=== PATIENT | male | born 1955 | race African-American/Black ===

== ENCOUNTER 2018-07-26 09:55 | Emergency (ER) | payer SELFPAY ==
[2018-07-26] MEDS ORDERED: Ondansetron PF 4 MG/2 ML Vial ONE (10:08)
[2018-07-26] MEDS ORDERED: Pantoprazole 40 MG VIAL ONE (10:08)
[2018-07-26] MEDS ORDERED: Ketorolac Tromethamine 30 MG/ML VIAL ONE (10:08)
[2018-07-26 10:36] LABS: #Basophils 0.1 thou/uL (0.0-0.2); #Eosinphils 0.1 thou/uL (0.0-0.7); #Lymphocytes 1.9 thou/uL (1.20-3.40); #Monocytes 0.4 thou/uL (0.11-0.59); #Neutrophils 3.2 thou/uL (1.40-6.50); %Basophils 1.1 % (0.0-1.0); %Eosinophils 1.4 % (0.0-10.0); %Lymphocytes 34.4 % (21.0-51.0); %Monocytes 6.2 % (0.0-10.0); %Neutrophils 56.8 % (42.0-75.0); Mean Corpuscular HGB CONC 32.1 g/dL (32.0-36.0); Mean Corpuscular Hemoglobin 31.1 pg (27.0-31.0); Mean Platelet Volume 8.9 fL (7.4-10.4); Platelet Count 176 thou/uL (130-400); RBC Distribution Width 12.1 % (11.5-14.5); Red Blood Cell (RBC) Count 4.82 mill/uL (4.70-6.10); White Blood Cell (WBC) Count 5.6 thou/uL (4.8-10.8)
[2018-07-26 11:00] LABS: ALT (SGPT) 11 U/L (8-55); AST (SGOT) 20 U/L (5-34); Alkaline Phosphatase 78 U/L (40-150); Anion Gap 17 mmol/L (10-20); BUN (Urea Nitrogen) 10 mg/dL (8.4-25.7); Bilirubin, Total 0.4 mg/dL (0.2-1.2); Calc. Creatinine Clearance 0 mL/min (70-130); Calcium 9.3 mg/dL (7.8-10.44); Carbon Dioxide 21 mmol/L (23-31); Chloride 106 mmol/L (98-107); Estimated GFR-MDRD Greater than 90; Globulin 3.8 g/dL (2.4-3.5); Glucose 111 mg/dL (80-115); Potassium 4.7 mmol/L (3.5-5.1); Protein, Total 7.8 g/dL (5.8-8.1); Sodium 139 mmol/L (136-145)
--- NOTE | 2018-07-26 11:53 | RAD ---
PORTABLE CHEST: Date: 07/26/18 HISTORY: Generalized weakness, vomiting. COMPARISON: 07/15/15 study. FINDINGS: Heart size within normal limits. Aorta is mildly tortuous. The lungs are clear of any infiltrative pr ocess. IMPRESSION: No acute changes. POS: TPC
[2018-07-26] MEDS ORDERED: hydrALAZINE 20 MG/ML VIAL ONE (12:59)
== END 2018-07-26 13:26 | disposition home or self-care (01) ==
LOC: ERS 09:55
DX: R53.1 Weakness (principal); I25.10 Atherosclerotic heart disease of native coronary artery without angina pectoris; J42 Unspecified chronic bronchitis; F17.210 Nicotine dependence, cigarettes, uncomplicated
CPT/HCPCS: 36415; 71045; 80053; 84484; 85025; 87081; 87430; 87804; 93005; 96361; 96374; 96375; C9113; J0360; J1885; J2405

== ENCOUNTER 2019-03-17 10:41 | Inpatient (IN) | payer SELFPAY ==
[2019-03-17 11:05] LABS: Prothrombin Time 13.4 SEC (12.0-14.7)
[2019-03-17 11:06] LABS: PTT 29.5 SEC (22.9-36.1)
[2019-03-17 11:09] LABS: Hemoglobin 14.9 g/dL (14.0-18.0); Mean Corpuscular HGB CONC 33.2 g/dL (32.0-36.0); Mean Corpuscular Hemoglobin 31.6 pg (27.0-31.0); Mean Corpuscular Volume 95.4 fL (78.0-98.0); Mean Platelet Volume 8.5 fL (7.4-10.4); Platelet Count 202 thou/uL (130-400); RBC Distribution Width 12.6 % (11.5-14.5); Red Blood Cell (RBC) Count 4.72 mill/uL (4.70-6.10)
[2019-03-17 11:10] LABS: White Blood Cell (WBC) Count 5.6 thou/uL (4.8-10.8)
[2019-03-17 11:27] LABS: Band 3 % (5-11); Eosinophils 4 % (0-10); Lymphocytes 16 % (21-51); MDiff Complete? YES; Monocytes 18 % (0-10); Neutrophil 34 % (42-75); Platelet Morphology Comment Appears Adequate; Polychromasia SLIGHT = 2-3 cells (100X) (0-2/hpf); Reactive Lymphocytes 25 % (0-10); Target Cells SLIGHT = 2-5 cells (100X) (0-1/hpf); Tear Drops SLIGHT = 2-5 cells (100X) (0-1/hpf)
--- NOTE | 2019-03-17 11:34 | CT ---
CT BRAIN WITHOUT CONTRAST: HISTORY: Level II stroke, right-sided weakness, and slurred speech. COMPARISON: Comparison is made to the previous day's exam. FINDINGS: Changes of old infarction in the right cerebellar hemisphere and chronic small-vessel ischemic diseas e are again seen. The ventricular size is stable and the basilar cisterns patent. No evidence of ac unga infarct, hemorrhage, midline shift, or abnormal extraaxial fluid collections is noted. The bony calvarium is intact. 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 IMPRESSION: No CT evidence of acute intracranial process. Discussed over the telephone with ER physician, Dr. Andrew Hamlin, at 11:03 a.m. AUSTYN COREA POS: FLORENTIN
[2019-03-17 11:36] LABS: ALT (SGPT) 10 U/L (8-55); AST (SGOT) 22 U/L (5-34); Albumin 4.1 g/dL (3.4-4.8); Alkaline Phosphatase 81 U/L (40-150); Anion Gap 13 mmol/L (10-20); BUN (Urea Nitrogen) 11 mg/dL (8.4-25.7); Bilirubin, Total 0.9 mg/dL (0.2-1.2); CK (CPK) 66 U/L (30-200); Calc. Creatinine Clearance 0 mL/min (70-130); Calcium 9.8 mg/dL (7.8-10.44); Carbon Dioxide 23 mmol/L (23-31); Chloride 105 mmol/L (98-107); Estimated GFR-MDRD 90; Globulin 3.4 g/dL (2.4-3.5); Glucose 101 mg/dL (80-115); Potassium 4.2 mmol/L (3.5-5.1); Protein, Total 7.5 g/dL (5.8-8.1); Sodium 137 mmol/L (136-145)
[2019-03-17] MEDS ORDERED: Aspirin 300 MG Suppository ONE (13:30)
[2019-03-17] MEDS ORDERED: Aspirin Chewable 81 MG TAB ONE (13:38)
[2019-03-17] MEDS ORDERED: Ondansetron ODT 4 MG TAB SL PRN (14:49)
[2019-03-17] MEDS ORDERED: Ondansetron PF 4 MG/2 ML Vial IVP PRN (14:49)
[2019-03-17] MEDS ORDERED: Acetaminophen 325 MG TAB PO PRN (14:49)
[2019-03-17 14:52] LABS: Bilirubin Negative (Negative); Blood, Urine Negative (Negative); Clarity Clear (Clear); Glucose, Urine (Dipstick) Normal (Negative); Leukocyte Negative Leu/uL (Negative); Nitrite Negative (Negative); Protein, Urine (Dipstick) Negative (Neg-Trace); Urobilinogen Normal mg/dL (Less than 2)
--- NOTE | 2019-03-17 15:34 | RAD ---
CHEST 1 VIEW PORTABLE: Date: 03/17/19 HISTORY: Elevated white blood cell count. COMPARISON: 07/26/18. FINDINGS: Monitor leads overlie the chest. Heart size is normal. The lungs are clear. IMPRESSION: No acute intrathoracic disease. Atherosclerosis of aorta. Stable from prior study. POS: OFF
[2019-03-17] MEDS ORDERED: Lorazepam 2 MG/ML VIAL SLOW IVP PRN (16:22)
[2019-03-17 16:48] VITALS: BMI 18.7
[2019-03-17 17:22] LABS: Troponin I 0.012 ng/mL (< 0.028)
--- NOTE | 2019-03-17 18:05 | MRI ---
MRI Brain WO Con History: Right-sided weakness and slurred speech Comparison: CT brain same day Findings: On the diffusion weighted imaging sequence there is diffusion restriction in the left MCA t erritory which is scattered and punctate. This involves the deep white matter and cortex of both the left temporal lobe and parietal lobe area and encephalomalacia inferior right cerebellum, large v olume. No midline shift. No mass effect. There are punctate foci of susceptibility of the left occipital lob e and right parietal lobe indicate chronic microhemorrhages as well as the deep left parietal white matter. Extensive chronic microangiopathic changes. Globes are intact. Mild mucosal sinus thickening of both maxillary sinuses. Impression: Multifocal small peripheral cortical infarcts of the left MCA distribution as well as lef t MCA deep white matter.
[2019-03-17] MEDS: Atorvastatin Calcium 40 MG TAB PO SCH (20:46)
--- NOTE | 2019-03-17 22:30 | HP ---
CHIEF COMPLAINT: Worsening weakness to his left upper extremity, left lower extremity, and slurred speech. HISTORY OF PRESENT ILLNESS: The patient is a 63-year-old male with history of CAD. He does have stents x2. He has a history of stroke in the past, currently not on any medication, came into the hospital actually yesterday in the EMS with symptoms of stroke-like symptoms. He initially underwent a workup with CT head and also a CTA and a stroke level 1 was activated. An old CVA was found on the CT brain. The patient initially was asked to be admitted to the hospital, however, he left against medical advice. He came back in again today because the family insisted that he continues to have weakness and slurred speech. He underwent a CTA on the , which indicated bilateral calcification of the terminal carotid arteries, right greater than left, moderate focal calcified plaques on the distal right vertebral artery. Incidental note of prominent mediastinal lymph node was also noted. On his right carotid artery, he had a moderate plaque, however, the degree of stenosis was difficult given the tortuosity of the intracranial course. The patient also had a CT head today, which indicated just old infarct in the right cerebellum and chronic small-vessel disease, otherwise nothing acute was noted. PAST MEDICAL HISTORY: The patient has a history of 1. CAD. 2. He has a history of prior strokes. 3. He has a history of chronic bronchitis, pulmonary disease, a smoker. He apparently has a history of seizures, but is not on any medications. PAST SURGICAL HISTORY: He has had no surgeries in the past. SOCIAL HISTORY: He drinks 5 drinks per day. Smokes a pack of cigarettes a day. Any other recreational drug use, he says that he has had a usage of cocaine, however, unclear if he did it recently. He is a full code. Lives alone. ALLERGIES: NO KNOWN DRUG ALLERGIES. MEDICATIONS: He takes none. REVIEW OF SYSTEMS: All negative except for the ones mentioned above in the HPI. PHYSICAL EXAMINATION: VITAL SIGNS: Temperature of 98.8, pulse 96, respirations 18, blood pressure 176/98. GENERAL: He is awake, alert, and oriented x3. Does not appear in any distress. HEENT: Normocephalic, atraumatic. No lymphadenopathy noted. Pupils are equal and reactive to light. CV: S1 and S2 present. No murmurs, rubs, or gallops. LUNGS: Clear to auscultation. No rhonchi or wheezes noted. ABDOMEN: Soft and nontender. Bowel sounds are present x2. EXTREMITIES: No edema. Pedal pulses are present x2. NEURO: He does have significant dysarthria. He has significant weakness to his right upper extremity and right lower extremity. SKIN: No cuts, lesions, or bruises noted. DIAGNOSTIC DATA: EKG indicated sinus bradycardia. LABORATORY RESULTS: WBCs of 5.4, hemoglobin of 14.9, hematocrit of 45.0. He does have 3 bands. Chemistry; sodium of 137, potassium of 4.2, chloride of 105, BUN of 11, creatinine of 1.01. Troponin x2 were negative. ASSESSMENT AND PLAN: The patient is a 63-year-old male who presents to the hospital with weakness. 1. Most likely a stroke. The patient does have right-sided weakness. He has had a right cerebellar infarct in the past based on the CT scan. The patient told me that he does have weakness on his right side to begin with. The patient does not take any aspirin or statin at home. We will start him on aspirin. We will start him on a statin. We will get an echocardiogram. We will get an MRI brain and continue to monitor. Neurology has been consulted. 2. Sinus bradycardia. He does have a history of coronary artery disease. He has 2 stents. He has not been on any medications. His troponins are negative. The patient denies any chest pain or shortness of breath. I will wait for the echocardiogram to come back. 3. Normal WBC with mild elevated bands. We will get a chest x-ray and a urine to make sure there is no other infectious etiology. 4. Coronary artery disease. We will continue with aspirin and the statin. We will also check a lipid level in the morning. 5. Alcohol use and smoking history. I have talked to him in detail about smoking cessation. He understands he does not want a patch. I will put him on 's protocol and do Ativan p.r.n. Job ID: [id number]
[2019-03-18 05:59] LABS: Cardiac Risk 3.1 (Less than 4.5)
[2019-03-18] MEDS: Enoxaparin Sodium 40 MG/0.4 ML SYRINGE SC SCH (08:17)
[2019-03-18] MEDS ORDERED: Aspirin 81 mg Enteric Coated Tablet PO SCH (09:00)
--- NOTE | 2019-03-18 11:37 | PDOC.HOSPP ---
- Subjective Encounter Date: 03/18/19 Encounter Time: 11:35 Subjective: Mr. Graham was seen today in follow-up of acute CVA. He does not have any complaints. He continues with right sided weakness. - Objective Vital Signs & Weight: Vital Signs (12 hours) Temp Pulse Pulse Pulse Resp BP BP 03/18/19 09:50 52 L 52 L 152/89 H 03/18/19 08:55 57 L 51 L 187/88 H 03/18/19 08:00 98.2 F 47 L 16 03/18/19 07:35 197/87 H 03/18/19 04:00 98.2 F 53 L 18 03/18/19 03:00 144/77 H 03/17/19 23:56 175/88 H 03/17/19 23:53 97.7 F 47 L 15 BP BP Pulse Ox 03/18/19 09:50 162/79 H 03/18/19 08:55 187/82 H 03/18/19 08:00 197/87 H 99 03/18/19 07:35 03/18/19 04:00 144/77 H 95 03/18/19 03:00 03/17/19 23:56 181/81 H 03/17/19 23:53 175/88 H 98 Weight Weight 142 lb 1.6 oz I&O: 03/17/19 03/18/19 03/19/19 06:59 06:59 06:59 Intake Total 240 Output Total 650 Balance -410 Result Diagrams: 03/17/19 10:47 03/17/19 10:47 Hospitalist ROS - Medication Medications: Active Medications Generic Name Dose Route Start Last Admin Trade Name Kirit PRN Reason Stop Dose Admin Aspirin 81 mg 03/18/19 09:00 03/18/19 08:11 Ecotrin PO 81 mg DAILY [facility] Administration Atorvastatin Calcium 40 mg 03/17/19 21:00 03/17/19 20:46 Lipitor PO Not Given HS [facility] Enoxaparin Sodium 40 mg 03/18/19 09:00 03/18/19 08:17 Lovenox SC 40 mg 0900 [facility] Administration - Exam Eye: PERRL, anicteric sclera Heart: RRR, no murmur, no gallops, no rubs, normal peripheral pulses Respiratory: CTAB, no wheezes, no rales, no ronchi, normal chest expansion, no tachypnea, normal percussion Gastrointestinal: soft, non-tender, non-distended, normal bowel sounds, no palpable masses, no hepatomegaly Extremities: no cyanosis, no clubbing, no edema Neurological: hemiplegia (+ right sided hemiplegia, patient can only partially lift his arm.) Psychiatric: normal affect, A&O x 3 Hosp A/P (1) Acute CVA (cerebrovascular accident) Code(s): I63.9 - CEREBRAL INFARCTION, UNSPECIFIED Status: Acute (2) Hypertension Code(s): I10 - ESSENTIAL (PRIMARY) HYPERTENSION Status: Chronic (3) Tobacco abuse Code(s): Z72.0 - TOBACCO USE Status: Chronic - Plan * Acute CVA with right sided weakness- continue PT/OT * HTN- blood pressure is quite elevated- will add Lisinopril * Increase the dose of aspirin to 325mg a day * Continue Lipitor
[2019-03-18] MEDS: Atorvastatin Calcium 40 MG TAB PO SCH (21:05)
[2019-03-19] MEDS: Lisinopril 10 MG TAB PO SCH (09:14)
[2019-03-19] MEDS: Aspirin 325 mg Enteric Coated Tablet PO SCH (09:15)
[2019-03-19] MEDS: Enoxaparin Sodium 40 MG/0.4 ML SYRINGE SC SCH (09:16)
--- NOTE | 2019-03-19 11:41 | PDOC.HOSPP ---
- Subjective Encounter Date: 03/19/19 Encounter Time: 11:40 Subjective: Mr. Graham was seen today in follow-up of acute CVA. It was noted this morning that he is more weak on the right side, and more dysarthric. He is not certain what time this began. - Objective Vital Signs & Weight: Vital Signs (12 hours) Temp Pulse Pulse Pulse Resp BP BP 03/19/19 09:14 127/86 03/19/19 08:36 84 88 139/91 H 03/19/19 08:10 03/19/19 08:00 98.6 F 84 18 03/19/19 04:00 97.8 F 70 20 03/19/19 03:00 145/76 H 03/19/19 00:00 99 F 56 L 20 BP BP Pulse Ox 03/19/19 09:14 03/19/19 08:36 127/86 03/19/19 08:10 96 03/19/19 08:00 127/86 96 03/19/19 04:00 145/76 H 99 03/19/19 03:00 03/19/19 00:00 143/78 H 97 Weight Admit Weight 142 lb 1.6 oz Weight 142 lb 1.6 oz I&O: 03/18/19 03/19/19 03/20/19 06:59 06:59 06:59 Intake Total 240 580 240 Output Total 650 500 Balance -410 80 240 Result Diagrams: 03/17/19 10:47 03/17/19 10:47 Hospitalist ROS - Medication Medications: Active Medications Generic Name Dose Route Start Last Admin Trade Name Freq PRN Reason Stop Dose Admin Aspirin 325 mg 03/19/19 09:00 03/19/19 09:15 Ecotrin PO 325 mg DAILY [facility] Administration Atorvastatin Calcium 40 mg 03/17/19 21:00 03/18/19 21:05 Lipitor PO 40 mg HS [facility] Administration Enoxaparin Sodium 40 mg 03/18/19 09:00 03/19/19 09:16 Lovenox SC 40 mg 0900 [facility] Administration Lisinopril 10 mg 03/19/19 09:00 03/19/19 09:14 Zestril PO 10 mg DAILY [facility] Administration - Exam Eye: PERRL, anicteric sclera ENT: normocephalic atraumatic, no oropharyngeal lesions Heart: RRR, no murmur, no gallops, no rubs, normal peripheral pulses Respiratory: CTAB, no wheezes, no rales, no ronchi, normal chest expansion Gastrointestinal: soft, non-tender, non-distended, normal bowel sounds Extremities: no cyanosis, no clubbing, no edema Neurological: hemiplegia (worsening right hemiplegia- he is slightly weaker on the right than yesterday) Hosp A/P (1) Acute CVA (cerebrovascular accident) Code(s): I63.9 - CEREBRAL INFARCTION, UNSPECIFIED Status: Acute (2) Hypertension Code(s): I10 - ESSENTIAL (PRIMARY) HYPERTENSION Status: Chronic (3) Tobacco abuse Code(s): Z72.0 - TOBACCO USE Status: Chronic - Plan * Acute CVA with right sided weakness- will obtain a stat CT scan of the brain * HTN- blood pressure is better- continue Lisinopril * Continue aspirin * Continue Lipitor * Further recommendations pending CT scan results
--- NOTE | 2019-03-19 13:50 | CT ---
CT HEAD WITHOUT CONTRAST: Date: 03/19/19 INDICATION: Weakness right side. COMPARISON: Head CT of 03/17/19. MRI of 03/17/19. FINDINGS: MRI exam showed evidence of numerous small acute infarcts in the left cerebral hemisphere. Today's CT shows moderate chronic ischemic white matter change. There are lucencies seen in the subco rtical white matter of the left frontal lobe at the site of the areas of restricted diffusion seen on MRI. There is no hemorrhage. No mass effect. Increased cortical lucency seen in the posterior left f rontal and anterior left parietal region at site of cortical infarct seen on the recent MRI. IMPRESSION: Mild interval change in the left cerebral hemisphere on CT corresponding to the areas of acute infarc t seen on MRI of 03/17/19. No hemorrhage or mass effect. POS: VENKATESH
[2019-03-19] MEDS: Dextrose 5 % And 0.9 % NaCl 1,000 ML IV SCH (19:14)
[2019-03-19] MEDS: Atorvastatin Calcium 40 MG TAB PO SCH (23:01)
[2019-03-20 05:48] LABS: Anion Gap 11 mmol/L (10-20); BUN (Urea Nitrogen) 9 mg/dL (8.4-25.7); Calc. Creatinine Clearance 82 mL/min (70-130); Calcium 9.1 mg/dL (7.8-10.44); Carbon Dioxide 24 mmol/L (23-31); Chloride 107 mmol/L (98-107); Estimated GFR-MDRD Greater than 90; Glucose 112 mg/dL (80-115); Sodium 138 mmol/L (136-145)
[2019-03-20] MEDS: Aspirin 325 mg Enteric Coated Tablet PO SCH (09:42)
[2019-03-20] MEDS: Enoxaparin Sodium 40 MG/0.4 ML SYRINGE SC SCH (09:43)
[2019-03-20] MEDS: Lisinopril 10 MG TAB PO SCH (09:49)
[2019-03-20] MEDS: Dextrose 5 % And 0.9 % NaCl 1,000 ML IV SCH ×2 (09:54→20:56)
--- NOTE | 2019-03-20 11:59 | CON ---
DATE OF TELEMEDICINE CONSULTATION: 03/20/2019 The patient is not able to give much history, but majority of history was also obtained from the chart. RN accompanying me is Kareem Joyce. CHIEF COMPLAINT: Acute stroke. HISTORY OF PRESENT ILLNESS: The patient is a 63-year-old man, who has developed right face, arm, and leg weakness and he came in on the with history of acute stroke. He had a stroke workup and he had CVA on the left in the left MCA territory. The patient was admitted initially and left AMA, and came back again on 03/17 because of family pressure per chart. The patient has significant weakness of the right side of the body at this time. He is unable to give much history, but has significant dysarthria. He says he lives with a friend, who rents from him and he does not have family members helping at home from what we could gather from his report. PREVIOUS MEDICAL HISTORY: Positive for coronary artery disease, diabetes, and COPD. He has history of prior strokes. PAST SURGICAL HISTORY: None. SOCIAL HISTORY: He drinks 5 drinks per day. Smoked 1 pack a day for several years, quit about a year ago. Never . Does not have children. 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 ALLERGIES: NO KNOWN DRUG ALLERGIES. MEDICATIONS: None at home. REVIEW OF SYSTEMS: Difficult to obtain mostly due to his dysarthria, but: CARDIAC: Negative for chest pain or palpitations. RESPIRATORY: Negative for shortness of breath. GI: Negative for nausea, vomiting, or diarrhea. NEUROLOGIC: Positive for right-sided weakness. OPHTHALMOLOGIC: Negative for blindness or vision problems. DERMATOLOGIC: Negative for rash. HEMATOLOGIC: Negative for any bleeding diathesis. LABORATORY AND DIAGNOSTIC DATA: Current workup and lab reports: White count 5.6, hemoglobin 14.9, hematocrit 45, and platelet count 202. PT 13.4, INR 1.0, and PTT 29.5. Sodium 138, potassium 4, chloride 107, bicarb 24, BUN 9, creatinine 0.84 , and glucose 112. Lipid profile is within normal limits. TSH is pending. CT of the head showed interval change in the left cerebral hemisphere on the CT corresponding to areas of acute infarct with MRI seen on 03/17.His MRI does show infarct in the left MCA distribution, infarct in deep white matter on the left side. His echocardiogram was completed and did not show any cardiac thrombus. CTA was done on 03/16/2019, it does show bilateral calcification of terminal carotid arteries, right greater than left. Focal cortical calcific plaque distal right vertebral artery and he has prominent mediastinal lymph nodes. PHYSICAL EXAMINATION: VITAL SIGNS: Temperature 97.8, pulse 66, O2 sats 94, and blood pressure 127/ 65. GENERAL APPEARANCE: Thin built, well-nourished man, who is emotional when he talks about his mother. NEUROLOGIC: He is oriented to time, place, and person. Cranial nerves 2 through 12, normal extraocular movements, he has right facial droop, and normal sensation of face bilaterally, tongue midline, normal elevation of palate. Motor; bulk normal, tone normal, strength 0/5 on the right side, 5/5 on the left upper and lower extremities. Deep tendon reflexes 2+ throughout. Sensory, normal finger-to- nose and normal sensation on the left, but deficit on the right side and speech dysarthria. Cerebellar, normal [id number] and [id number] on the left side. IMPRESSION: The patient is a 63-year-old man with dense right hemiparesis secondary to left middle cerebral artery infarct. His stroke workup has been completed. Since he is not on any medications at home, he has currently been started on aspirin at the hospital. His examination shows dense right hemiparesis. Diagnosis is most consistent with an acute left MCA infarct. TREATMENT RECOMMENDATIONS: Please transfer him to rehab center for further rehab and recovery is guarded because of the extent of his CVA. I will see him as needed. Job ID: [id number] [facility]
--- NOTE | 2019-03-20 14:20 | RAD ---
Modified barium swallow HISTORY: Dysphagia following cerebral infarction. Feeding difficulties. FINDINGS: Exam was performed in conjunction with speech pathology. Multiple consistencies used. Video review is available and demonstrates early spill of contrast with marked delay in initiation of swallowing. Deep penetration with large boluses. Patient did cough several times. Aspiration not defi nitely visualized. Large amount of residual within the valleculae, causing worsening of pooling. Fluoroscopy time 2.4 minutes. The esophagus below the level of the hypopharynx was not evaluated. Please see separate detailed repo rt from speech pathology.
--- NOTE | 2019-03-20 15:34 | PDOC.HOSPP ---
- Subjective Encounter Date: 03/20/19 Encounter Time: 12:00 Subjective: Mr. Graham was seen today in follow-up of acute CVA. He appears a bit better today with regards to the dysarthria, he remains weak on the right side. - Objective Vital Signs & Weight: Vital Signs (12 hours) Temp Pulse Pulse Pulse Resp BP BP 03/20/19 12:00 98.5 F 56 L 12 03/20/19 11:38 71 51 L 137/83 03/20/19 09:49 120/72 03/20/19 08:00 98.7 F 54 L 16 03/20/19 04:00 97.8 F 66 16 BP BP Pulse Ox 03/20/19 12:00 119/70 97 03/20/19 11:38 115/71 03/20/19 09:49 03/20/19 08:00 116/67 95 03/20/19 04:00 127/65 94 L Weight Admit Weight 142 lb 1.6 oz Weight 142 lb 1.6 oz I&O: 03/19/19 03/20/19 03/21/19 06:59 06:59 06:59 Intake Total 580 460 Output Total 500 725 100 Balance 80 -265 -100 Result Diagrams: 03/17/19 10:47 03/20/19 05:15 Hospitalist ROS - Medication Medications: Active Medications Generic Name Dose Route Start Last Admin Trade Name Freq PRN Reason Stop Dose Admin Aspirin 325 mg 03/19/19 09:00 03/20/19 09:42 Ecotrin PO 325 mg DAILY [facility] Administration Atorvastatin Calcium 40 mg 03/17/19 21:00 03/19/19 23:01 Lipitor PO 40 mg HS [facility] Administration Enoxaparin Sodium 40 mg 03/18/19 09:00 03/20/19 09:43 Lovenox SC 40 mg 0900 [facility] Administration Dextrose/Sodium Chloride 1,000 mls @ 75 mls/hr 03/19/19 18:30 03/20/19 09:54 D5 0.9% Ns IV 1,000 mls .[id number] [facility] Administration Lisinopril 10 mg 03/19/19 09:00 03/20/19 09:49 Zestril PO Not Given DAILY [facility] - Exam Eye: PERRL, anicteric sclera Heart: RRR, no murmur, no gallops, no rubs, normal peripheral pulses Respiratory: CTAB, no wheezes, no rales, no ronchi, normal chest expansion Gastrointestinal: soft, non-tender, non-distended, normal bowel sounds, no palpable masses, no hepatomegaly Extremities: no cyanosis, no clubbing, no edema Neurological: hemiplegia (complete paresis of the right upper and lower extremity) Musculoskeletal: normal tone, no muscle wasting Psychiatric: normal affect, oriented to person Hosp A/P (1) Acute CVA (cerebrovascular accident) Code(s): I63.9 - CEREBRAL INFARCTION, UNSPECIFIED Status: Acute (2) Hypertension Code(s): I10 - ESSENTIAL (PRIMARY) HYPERTENSION Status: Chronic (3) Tobacco abuse Code(s): Z72.0 - TOBACCO USE Status: Chronic - Plan * Acute CVA with right hemiparesis- continue PT/OT * Dysarthria and Dysphagia- discussed with Speech Therapist- will obtain Modified Barium Swallow- * Briefly discussed the possibly of a PEG tube with the patient. He shook his head , but would like to talk with his sister about it. He tells me she should be in town in a day or so * HTN- blood pressure is better- continue Lisinopril * Continue aspirin * Continue Lipitor
[2019-03-20] MEDS: Atorvastatin Calcium 40 MG TAB PO SCH (20:56)
[2019-03-21] MEDS: Lisinopril 10 MG TAB PO SCH (09:13)
[2019-03-21] MEDS: Aspirin 325 mg Enteric Coated Tablet PO SCH (09:13)
[2019-03-21] MEDS: Enoxaparin Sodium 40 MG/0.4 ML SYRINGE SC SCH (09:14)
--- NOTE | 2019-03-21 10:05 | PRG ---
DATE OF SERVICE: 03/21/2019 SUBJECTIVE: The patient is seen and examined at the bedside. He is trying to eat his breakfast. He is trying to talk to me and answer my simple questions. OBJECTIVE: VITAL SIGNS: Blood pressure is 146/78, pulse is 56, respiratory rate is 16, O2 saturation is 95% on room air. HEENT: He has right facial droop. His pupils responding to light properly. NECK: Supple. LUNGS: Clear. HEART: S1, S2 normal. No S3. No S4. ABDOMEN: Soft, nontender, and nondistended. EXTREMITIES: No clubbing or cyanosis. There is 1+ peripheral edema similar bilateral on both lower extremities around the ankles. NEUROLOGIC: He is alert and oriented x1. The right-sided weakness present is profound. He is not able to do basically anything with his leg and very minimal function in the right hand. He has, as I mentioned above, right facial droop. LABORATORY DATA: None today. IMPRESSION: 1. Acute cerebrovascular accident in the left middle cerebral artery distribution. 2. Hypertension. 3. Tobacco abuse. PLAN: Plan is to continue his PT, OT, and speech. Continue aspirin. Continue Lipitor. Continue lisinopril for blood pressure control and transfer to the rehab as soon as it is arranged. Job ID: [id number]
[2019-03-21] MEDS ORDERED: Senokot S 8.6-50 MG TAB PO SCH ×2 (10:15→10:30)
[2019-03-21] MEDS: Dextrose 5 % And 0.9 % NaCl 1,000 ML IV SCH ×2 (12:23→22:35)
[2019-03-21] MEDS: Atorvastatin Calcium 40 MG TAB PO SCH (22:13)
[2019-03-21] MEDS: Senokot S 8.6-50 MG TAB PO SCH (22:13)
[2019-03-22 08:01] LABS: #Eosinphils 0.2 thou/uL (0.0-0.7); #Lymphocytes 1.9 thou/uL (1.20-3.40); #Monocytes 0.9 thou/uL (0.11-0.59); #Neutrophils 4.9 thou/uL (1.40-6.50); %Basophils 0.2 % (0.0-1.0); %Eosinophils 2.4 % (0.0-10.0); %Lymphocytes 23.9 % (21.0-51.0); %Monocytes 11.8 % (0.0-10.0); %Neutrophils 61.6 % (42.0-75.0); Hemoglobin 13.4 g/dL (14.0-18.0); Mean Corpuscular HGB CONC 33.1 g/dL (32.0-36.0); Mean Corpuscular Hemoglobin 31.4 pg (27.0-31.0); Mean Corpuscular Volume 94.9 fL (78.0-98.0); Mean Platelet Volume 9.1 fL (7.4-10.4); Platelet Count 181 thou/uL (130-400); RBC Distribution Width 12.1 % (11.5-14.5); Red Blood Cell (RBC) Count 4.26 mill/uL (4.70-6.10)
[2019-03-22 08:16] LABS: Anion Gap 12 mmol/L (10-20); BUN (Urea Nitrogen) 9 mg/dL (8.4-25.7); Calc. Creatinine Clearance 81 mL/min (70-130); Calcium 8.8 mg/dL (7.8-10.44); Carbon Dioxide 23 mmol/L (23-31); Chloride 109 mmol/L (98-107); Estimated GFR-MDRD Greater than 90; Glucose 98 mg/dL (80-115); Potassium 3.9 mmol/L (3.5-5.1); Sodium 140 mmol/L (136-145)
[2019-03-22] MEDS: Senokot S 8.6-50 MG TAB PO SCH ×2 (09:56→20:23)
[2019-03-22] MEDS: Lisinopril 10 MG TAB PO SCH (09:56)
[2019-03-22] MEDS: Enoxaparin Sodium 40 MG/0.4 ML SYRINGE SC SCH (09:58)
[2019-03-22] MEDS: Aspirin 325 mg Enteric Coated Tablet PO SCH (09:58)
--- NOTE | 2019-03-22 12:07 | PRG ---
DATE OF SERVICE: 03/22/2019 SUBJECTIVE: The patient is seen and examined at the bedside. He seems to be doing somewhat better than yesterday. He is more responsive to me today. He is able to eat his meal. OBJECTIVE: VITAL SIGNS: Blood pressure is 151/77, pulse is 66, temperature is 99.2, respiratory rate is 18, and O2 saturation is 99. HEENT: His pupils are responding to light properly. He has a right facial droop. LUNGS: Clear. HEART: S1 and S2, normal. No S3. No S4. ABDOMEN: Soft, nontender. EXTREMITIES: No clubbing, cyanosis, edema. NEUROLOGIC: He follows my commands. He is trying to talk, but his speech is affected significantly by the facial droop. He has right-sided weakness, which is quite profound comparable to incomplete inability to move up right lower extremity. LABORATORY DATA: White count of 8.0, hemoglobin 13.4, hematocrit 40.4, platelet count is 181,000. Sodium of 140, potassium 3.9, chloride 109, CO2 of 23, BUN 9, creatinine 0.85. IMPRESSION: 1. Acute cerebrovascular accident in the left middle cerebral artery distribution. 2. Hypertension. 3. Tobacco abuse. PLAN: Continue PT, OT, and speech therapy. Continue with statin and aspirin along with lisinopril and if it is possible to transfer him to the rehab versus senior care facility for PT. Job ID: [id number]
[2019-03-22] MEDS: Dextrose 5 % And 0.9 % NaCl 1,000 ML IV SCH (17:48)
[2019-03-22] MEDS: Atorvastatin Calcium 40 MG TAB PO SCH (20:23)
[2019-03-23] MEDS ORDERED: Loperamide HCl 2 MG CAP PO PRN (01:56)
[2019-03-23] MEDS: Dextrose 5 % And 0.9 % NaCl 1,000 ML IV SCH ×2 (05:53→20:46)
[2019-03-23] MEDS: Lisinopril 10 MG TAB PO SCH (09:16)
[2019-03-23] MEDS: Enoxaparin Sodium 40 MG/0.4 ML SYRINGE SC SCH (09:18)
[2019-03-23] MEDS: Senokot S 8.6-50 MG TAB PO SCH ×2 (09:19→20:43)
[2019-03-23] MEDS ORDERED: Aspirin 325 MG TAB PO SCH (09:30)
[2019-03-23] MEDS: Aspirin 325 mg Enteric Coated Tablet PO SCH (09:35)
--- NOTE | 2019-03-23 12:21 | PDOC.HOSPP ---
- Subjective Encounter Date: 03/23/19 Encounter Time: 12:19 Subjective: no complains, continue nectar thick food - Objective Vital Signs & Weight: Vital Signs (12 hours) Temp Pulse Resp BP BP Pulse Ox 03/23/19 11:40 98.9 F 53 L 20 140/77 97 03/23/19 09:16 153/78 H 03/23/19 07:40 97.4 F L 55 L 20 153/78 H 96 03/23/19 04:00 97.8 F 60 17 157/81 H 98 03/23/19 03:00 157/81 H Weight Admit Weight 142 lb 1.6 oz Weight 142 lb 1.6 oz I&O: 03/22/19 03/23/19 03/24/19 06:59 06:59 06:59 Intake Total 875 50 Output Total 250 Balance 625 50 Result Diagrams: 03/22/19 07:29 03/22/19 07:29 Hospitalist ROS - Medication Medications: Active Medications Generic Name Dose Route Start Last Admin Trade Name Timurq PRN Reason Stop Dose Admin Atorvastatin Calcium 40 mg 03/17/19 21:00 03/22/19 20:23 Lipitor PO 40 mg HS CURTIS Administration Enoxaparin Sodium 40 mg 03/18/19 09:00 03/23/19 09:18 Lovenox SC 40 mg 0900 CURTIS Administration Dextrose/Sodium Chloride 1,000 mls @ 75 mls/hr 03/19/19 18:30 03/23/19 05:53 D5 0.9% Ns IV 1,000 mls .[id number] CURTIS Administration Lisinopril 10 mg 03/19/19 09:00 03/23/19 09:16 Zestril PO 10 mg DAILY CURTIS Administration Senna/Docusate Sodium 1 tab 03/21/19 21:00 03/23/19 09:19 Senokot S PO Not Given BID CURTIS - Exam Eye: PERRL ENT: normocephalic atraumatic, no oropharyngeal lesions, moist mucosa Neck: supple, symmetric, no JVD Heart: RRR, no murmur, no gallops Respiratory: CTAB, no wheezes, no rales Gastrointestinal: soft, non-tender, non-distended Extremities: no cyanosis, no clubbing, no edema Neurological: hemiplegia, speech deficit Psychiatric: normal affect, normal behavior Hosp A/P (1) Acute CVA (cerebrovascular accident) Code(s): I63.9 - CEREBRAL INFARCTION, UNSPECIFIED Status: Acute (2) Hypertension Code(s): I10 - ESSENTIAL (PRIMARY) HYPERTENSION Status: Chronic Qualifiers: Hypertension type: essential hypertension Qualified Code(s): I10 - Essential (primary) hypertension (3) Tobacco abuse Code(s): Z72.0 - TOBACCO USE Status: Chronic - Plan PT/OT, social sciences instructor, speech therapy - Plan * Acute CVA with right hemiparesis- continue PT/OT * Dysarthria and Dysphagia- discussed with Speech Therapist- Modified Barium Swallow-[place] thick liquid * HTN- blood pressure is better- continue Lisinopril * Continue aspirin * Continue Lipitor
[2019-03-23] MEDS: Atorvastatin Calcium 40 MG TAB PO SCH (20:46)
[2019-03-24] MEDS: Aspirin 325 MG TAB PO SCH (09:07)
[2019-03-24] MEDS: Lisinopril 10 MG TAB PO SCH (09:07)
[2019-03-24] MEDS: Dextrose 5 % And 0.9 % NaCl 1,000 ML IV SCH ×2 (09:08→23:34)
[2019-03-24] MEDS: Senokot S 8.6-50 MG TAB PO SCH ×2 (09:08→21:39)
[2019-03-24] MEDS: Enoxaparin Sodium 40 MG/0.4 ML SYRINGE SC SCH (09:08)
--- NOTE | 2019-03-24 13:55 | PDOC.HOSPP ---
- Subjective Encounter Date: 03/24/19 Encounter Time: 13:52 Subjective: Doing better, decreased oral secretions, tolerating PO, Pureed and Monserrate thick - Objective Vital Signs & Weight: Vital Signs (12 hours) Temp Pulse Resp BP Pulse Ox 03/24/19 11:49 98.7 F 63 17 143/67 H 98 03/24/19 08:00 98 03/24/19 07:30 97.9 F 56 L 20 171/80 H 98 03/24/19 04:00 98.1 F 45 L 16 142/66 H 96 Weight Admit Weight 142 lb 1.6 oz Weight 142 lb 1.6 oz I&O: 03/23/19 03/24/19 03/25/19 06:59 06:59 06:59 Intake Total 875 1988 200 Output Total 250 Balance 625 1988 200 Result Diagrams: 03/22/19 07:29 03/22/19 07:29 Hospitalist ROS - Medication Medications: Active Medications Generic Name Dose Route Start Last Admin Trade Name Freq PRN Reason Stop Dose Admin Aspirin 325 mg 03/24/19 09:00 03/24/19 09:07 Aspirin PO 325 mg DAILY CURTIS Administration Atorvastatin Calcium 40 mg 03/17/19 21:00 03/23/19 20:46 Lipitor PO 40 mg HS CURTIS Administration Enoxaparin Sodium 40 mg 03/18/19 09:00 03/24/19 09:08 Lovenox SC 40 mg 0900 CURTIS Administration Dextrose/Sodium Chloride 1,000 mls @ 75 mls/hr 03/19/19 18:30 03/24/19 09:08 D5 0.9% Ns IV 1,000 mls .[id number] CURTIS Administration Lisinopril 10 mg 03/19/19 09:00 03/24/19 09:07 Zestril PO 10 mg DAILY CURTIS Administration Senna/Docusate Sodium 1 tab 03/21/19 21:00 03/24/19 09:08 Senokot S PO 1 tab BID CURTIS Administration - Exam General Appearance: awake alert Eye: PERRL, anicteric sclera ENT: normocephalic atraumatic, no oropharyngeal lesions, moist mucosa Neck: supple, symmetric, no JVD, no thyromegaly Heart: RRR, no murmur, no gallops, no rubs Respiratory: CTAB, no wheezes, no rales, no ronchi, normal chest expansion Gastrointestinal: soft, non-tender, non-distended, normal bowel sounds, no palpable masses, no hepatomegaly Extremities: no cyanosis, no clubbing, no edema Neurological: hemiplegia, speech deficit Psychiatric: normal affect, A&O x 3 Hosp A/P (1) Acute CVA (cerebrovascular accident) Code(s): I63.9 - CEREBRAL INFARCTION, UNSPECIFIED Status: Acute (2) Hypertension Code(s): I10 - ESSENTIAL (PRIMARY) HYPERTENSION Status: Chronic Qualifiers: Hypertension type: essential hypertension Qualified Code(s): I10 - Essential (primary) hypertension (3) Tobacco abuse Code(s): Z72.0 - TOBACCO USE Status: Chronic - Plan old records reviewed/req, PT/OT, clinical social work aide, speech therapy, DVT proph w/ lovenox - Plan * Acute CVA with right hemiparesis- continue PT/OT * Dysarthria and Dysphagia- discussed with Speech Therapist- Modified Barium Swallow-[place] thick liquid, pureed diet * HTN- blood pressure is better- continue Lisinopril * Continue aspirin * Continue Lipitor
[2019-03-24] MEDS: Atorvastatin Calcium 40 MG TAB PO SCH (21:37)
[2019-03-25] MEDS: Aspirin 325 MG TAB PO SCH (08:31)
[2019-03-25] MEDS: Lisinopril 10 MG TAB PO SCH (08:31)
[2019-03-25] MEDS: Enoxaparin Sodium 40 MG/0.4 ML SYRINGE SC SCH (08:32)
[2019-03-25] MEDS: Senokot S 8.6-50 MG TAB PO SCH ×2 (10:31→20:40)
--- NOTE | 2019-03-25 12:27 | PDOC.HOSPP ---
- Subjective Encounter Date: 03/25/19 Encounter Time: 12:22 Subjective: no complains, speech is slowly getting better - Objective Vital Signs & Weight: Vital Signs (12 hours) Temp Pulse Resp BP BP Pulse Ox 03/25/19 11:26 98.6 F 49 L 16 151/69 H 99 03/25/19 08:31 155/88 H 03/25/19 07:48 98.9 F 52 L 16 155/88 H 99 03/25/19 04:00 97.6 F 45 L 16 155/79 H 155/79 H 99 Weight Admit Weight 142 lb 1.6 oz Weight 142 lb 1.6 oz I&O: 03/24/19 03/25/19 03/26/19 06:59 06:59 06:59 Intake Total 1988 1467 Balance 1988 1467 Result Diagrams: 03/22/19 07:29 03/22/19 07:29 Hospitalist ROS - Medication Medications: Active Medications Generic Name Dose Route Start Last Admin Trade Name Freq PRN Reason Stop Dose Admin Aspirin 325 mg 03/24/19 09:00 03/25/19 08:31 Aspirin PO 325 mg DAILY CURTIS Administration Atorvastatin Calcium 40 mg 03/17/19 21:00 03/24/19 21:37 Lipitor PO 40 mg HS CURTIS Administration Enoxaparin Sodium 40 mg 03/18/19 09:00 03/25/19 08:32 Lovenox SC 40 mg 0900 CURTIS Administration Dextrose/Sodium Chloride 1,000 mls @ 75 mls/hr 03/19/19 18:30 03/24/19 23:34 D5 0.9% Ns IV 1,000 mls .[id number] CURTIS Administration Lisinopril 10 mg 03/19/19 09:00 03/25/19 08:31 Zestril PO 10 mg DAILY CURTIS Administration Senna/Docusate Sodium 1 tab 03/21/19 21:00 03/25/19 10:31 Senokot S PO Not Given BID CURTIS - Exam General Appearance: NAD Eye: PERRL, anicteric sclera ENT: normocephalic atraumatic, no oropharyngeal lesions Neck: supple, symmetric, no thyromegaly Heart - other findings: Bradycardia Respiratory: CTAB, no wheezes, no rales, no ronchi Gastrointestinal: soft, non-tender, non-distended, normal bowel sounds Extremities: no cyanosis, no clubbing, no edema Skin: normal turgor, no lesions, no rashes Neurological: hemiplegia Psychiatric: A&O x 3 Hosp A/P (1) Acute CVA (cerebrovascular accident) Code(s): I63.9 - CEREBRAL INFARCTION, UNSPECIFIED Status: Acute (2) Hypertension Code(s): I10 - ESSENTIAL (PRIMARY) HYPERTENSION Status: Chronic Qualifiers: Hypertension type: essential hypertension Qualified Code(s): I10 - Essential (primary) hypertension (3) Tobacco abuse Code(s): Z72.0 - TOBACCO USE Status: Chronic - Plan - Plan * Acute CVA with right hemiparesis- continue PT/OT * Dysarthria and Dysphagia- discussed with Speech Therapist- Modified Barium Swallow-[place] thick liquid, pureed diet * HTN- blood pressure is better- continue Lisinopril * Continue aspirin * Continue Lipitor * Bradycardia with Arrhythmia noted on 03/25, follow up on EKG * Pending placement, either with his sister or NH (No insurance), SW on board * DW Patient and SW about DC planning
[2019-03-25] MEDS: Dextrose 5 % And 0.9 % NaCl 1,000 ML IV SCH (14:17)
[2019-03-25] MEDS: Atorvastatin Calcium 40 MG TAB PO SCH (20:40)
[2019-03-26] MEDS: Dextrose 5 % And 0.9 % NaCl 1,000 ML IV SCH ×2 (02:04→13:43)
[2019-03-26] MEDS: Lisinopril 10 MG TAB PO SCH (10:14)
[2019-03-26] MEDS: Aspirin 325 MG TAB PO SCH (10:15)
[2019-03-26] MEDS: Enoxaparin Sodium 40 MG/0.4 ML SYRINGE SC SCH (10:16)
[2019-03-26] MEDS: Senokot S 8.6-50 MG TAB PO SCH ×2 (10:16→20:40)
[2019-03-26] MEDS ORDERED: hydrALAZINE 25 MG TAB PO PRN (15:41)
--- NOTE | 2019-03-26 15:54 | PDOC.HOSPP ---
- Subjective Encounter Date: 03/26/19 Encounter Time: 16:00 Subjective: Awake/alert, some slurring of speech present. Right hemiparesis unchanged. Per bedside nurse patient does not like [employer]akes. BP a bit labile. - Objective Vital Signs & Weight: Vital Signs (12 hours) Temp Pulse Pulse Pulse Resp BP BP 03/26/19 12:41 193/81 H 03/26/19 12:00 98.9 F 63 18 03/26/19 11:13 68 45 L 193/81 H 03/26/19 10:14 156/71 H 03/26/19 08:06 98.7 F 50 L 18 159/71 H 03/26/19 04:00 98.3 F 48 L 16 140/70 BP BP Pulse Ox 03/26/19 12:41 03/26/19 12:00 193/81 H 100 03/26/19 11:13 157/72 H 03/26/19 10:14 03/26/19 08:06 159/71 H 97 03/26/19 04:00 140/70 98 Weight Admit Weight 142 lb 1.6 oz Weight 142 lb 1.6 oz I&O: 03/25/19 03/26/19 03/27/19 06:59 06:59 06:59 Intake Total 1467 2215 Balance 1467 2215 Result Diagrams: 03/22/19 07:29 03/22/19 07:29 Hospitalist ROS - Medication Medications: Active Medications Generic Name Dose Route Start Last Admin Trade Name Freq PRN Reason Stop Dose Admin Aspirin 325 mg 03/24/19 09:00 03/26/19 10:15 Aspirin PO 325 mg DAILY CURTIS Administration Atorvastatin Calcium 40 mg 03/17/19 21:00 03/25/19 20:40 Lipitor PO 40 mg HS CURTIS Administration Enoxaparin Sodium 40 mg 03/18/19 09:00 03/26/19 10:16 Lovenox SC 40 mg 0900 CURTIS Administration Dextrose/Sodium Chloride 1,000 mls @ 75 mls/hr 03/19/19 18:30 03/26/19 13:43 D5 0.9% Ns IV 1,000 mls .[id number] CURTIS Administration Lisinopril 10 mg 03/19/19 09:00 03/26/19 10:14 Zestril PO 10 mg DAILY CURTIS Administration Senna/Docusate Sodium 1 tab 03/21/19 21:00 03/26/19 10:16 Senokot S PO 1 tab BID CURTIS Administration - Exam General Appearance: awake alert Eye: scleral icterus ENT: no oropharyngeal lesions Neck: supple, no JVD Heart: RRR Respiratory: CTAB Gastrointestinal: soft, non-tender, non-distended Extremities: no edema Skin: no rashes Neurological: hemiplegia Neurological - other findings: Right Musculoskeletal - other findings: RUE and RLL hemiplegia Psychiatric: A&O x 3 Hosp A/P (1) Acute CVA (cerebrovascular accident) Code(s): I63.9 - CEREBRAL INFARCTION, UNSPECIFIED Status: Acute (2) Hypertension Code(s): I10 - ESSENTIAL (PRIMARY) HYPERTENSION Status: Chronic Qualifiers: Hypertension type: essential hypertension Qualified Code(s): I10 - Essential (primary) hypertension (3) Tobacco abuse Code(s): Z72.0 - TOBACCO USE Status: Chronic - Plan Neuro -Acute CVA with right hemiparesis- continue PT/OT, ST rec [place] thick liquid, pureed diet Cards - HTN- blood pressure fair control- continue Lisinopril, added hydralazine prn * Continue aspirin * Continue Lipitor * [place] referrals in progress, spoke with MARQUIS
[2019-03-26] MEDS: Atorvastatin Calcium 40 MG TAB PO SCH (20:21)
[2019-03-27] MEDS: Dextrose 5 % And 0.9 % NaCl 1,000 ML IV SCH (03:10)
[2019-03-27] MEDS: Enoxaparin Sodium 40 MG/0.4 ML SYRINGE SC SCH (09:26)
[2019-03-27] MEDS: Lisinopril 10 MG TAB PO SCH (09:26)
[2019-03-27] MEDS: Aspirin 325 MG TAB PO SCH (09:27)
[2019-03-27] MEDS: Senokot S 8.6-50 MG TAB PO SCH ×2 (09:27→20:56)
--- NOTE | 2019-03-27 10:18 | PDOC.HOSPP ---
- Subjective Encounter Date: 03/27/19 Encounter Time: 08:15 Subjective: No acute overnight events; spoke with bedside nurse. Tolerating modified diet. Working with PT. Awaiting placement. - Objective Vital Signs & Weight: Vital Signs (12 hours) Temp Pulse Resp BP BP BP Pulse Ox 03/27/19 09:26 180/87 H 03/27/19 08:00 98.7 F 47 L 16 180/87 H 98 03/27/19 04:00 99.1 F 50 L 16 132/68 132/68 98 03/27/19 00:30 146/78 H 03/27/19 00:00 99.1 F 48 L 16 146/78 H 186/82 H 99 Weight Admit Weight 142 lb 1.6 oz Weight 142 lb 1.6 oz I&O: 03/26/19 03/27/19 03/28/19 06:59 06:59 06:59 Intake Total 2215 310 Output Total 1 Balance 2215 309 Result Diagrams: 03/22/19 07:29 03/22/19 07:29 Hospitalist ROS - Medication Medications: Active Medications Generic Name Dose Route Start Last Admin Trade Name Freq PRN Reason Stop Dose Admin Aspirin 325 mg 03/24/19 09:00 03/27/19 09:27 Aspirin PO 325 mg DAILY CURTIS Administration Atorvastatin Calcium 40 mg 03/17/19 21:00 03/26/19 20:21 Lipitor PO 40 mg HS CURTIS Administration Enoxaparin Sodium 40 mg 03/18/19 09:00 03/27/19 09:26 Lovenox SC 40 mg 0900 CURTIS Administration Lisinopril 10 mg 03/19/19 09:00 03/27/19 09:26 Zestril PO 10 mg DAILY CURTIS Administration Senna/Docusate Sodium 1 tab 03/21/19 21:00 03/27/19 09:27 Senokot S PO Not Given BID CURTIS - Exam General Appearance: NAD Eye: PERRL ENT: moist mucosa Neck: supple, no JVD Heart: RRR Respiratory: CTAB Gastrointestinal: soft, non-tender Extremities: no edema Neurological: no new deficit Neurological - other findings: right hemiplegia Psychiatric: A&O x 3 Hosp A/P (1) Acute CVA (cerebrovascular accident) Code(s): I63.9 - CEREBRAL INFARCTION, UNSPECIFIED Status: Acute (2) Hypertension Code(s): I10 - ESSENTIAL (PRIMARY) HYPERTENSION Status: Chronic Qualifiers: Hypertension type: essential hypertension Qualified Code(s): I10 - Essential (primary) hypertension (3) Tobacco abuse Code(s): Z72.0 - TOBACCO USE Status: Chronic (4) Oropharyngeal dysphagia Code(s): R13.12 - DYSPHAGIA, OROPHARYNGEAL PHASE Status: Acute - Plan speech therapy, DVT proph w/lovenox, dc IVF Neuro -Acute CVA with right hemiparesis- continue PT/OT, ST rec [place] thick liquid, pureed diet (tolerating) Cards - HTN- blood pressure fair control- continue Lisinopril, added hydralazine prn * Continue aspirin * Continue Lipitor * [facility] referrals in progress, spoke with CM, medically cleared for discharge [facility] IVFs today
--- NOTE | 2019-03-27 16:50 | EKG ---
Test Reason : Blood Pressure : / mmHG Vent. Rate : 043 BPM Atrial Rate : 043 BPM P-R Int : 144 ms QRS Dur : 090 ms QT Int : 506 ms P-R-T Axes : 077 050 051 degrees QTc Int : 427 ms Marked sinus bradycardia ST elevation, consider early repolarization Abnormal ECG Confirmed by ALDO KELLY ([id number] on 03/27/2019 4:49:49 PM Referred By: RANJIT Confirmed By:ALDO KELLY
[2019-03-27] MEDS: Atorvastatin Calcium 40 MG TAB PO SCH (20:56)
[2019-03-28] MEDS: Lisinopril 10 MG TAB PO SCH (08:52)
[2019-03-28] MEDS: Aspirin 325 MG TAB PO SCH (08:53)
[2019-03-28] MEDS: Enoxaparin Sodium 40 MG/0.4 ML SYRINGE SC SCH (08:53)
[2019-03-28] MEDS: Senokot S 8.6-50 MG TAB PO SCH (08:53)
[2019-03-28] MEDS ORDERED: Lisinopril 10 MG TAB PO SCH (13:59)
--- NOTE | 2019-03-28 14:03 | PDOC.HOSPP ---
- Subjective Encounter Date: 03/28/19 Subjective: feels good and has no specific complaints - Objective Vital Signs & Weight: Vital Signs (12 hours) Temp Pulse Pulse Pulse Resp BP BP 03/28/19 11:12 98.7 F 52 L 16 03/28/19 09:30 74 54 L 143/64 H 03/28/19 08:52 168/78 H 03/28/19 08:00 168/78 H 03/28/19 07:29 98.7 F 61 20 03/28/19 04:00 98.5 F 53 L 16 145/78 H BP BP Pulse Ox 03/28/19 11:12 123/65 97 03/28/19 09:30 149/72 H 03/28/19 08:52 03/28/19 08:00 99 03/28/19 07:29 168/78 H 99 03/28/19 04:00 145/78 H 98 Weight Admit Weight 142 lb 1.6 oz Weight 142 lb 1.6 oz I&O: 03/27/19 03/28/19 03/29/19 06:59 06:59 06:59 Intake Total 310 1680 Output Total 1 Balance 309 1680 Result Diagrams: 03/22/19 07:29 03/22/19 07:29 Hospitalist ROS - Medication Medications: Active Medications Generic Name Dose Route Start Last Admin Trade Name Kirit PRN Reason Stop Dose Admin Aspirin 325 mg 03/24/19 09:00 03/28/19 08:53 Aspirin PO 325 mg DAILY CURTIS Administration Atorvastatin Calcium 40 mg 03/17/19 21:00 03/27/19 20:56 Lipitor PO 40 mg HS CURTIS Administration Enoxaparin Sodium 40 mg 03/18/19 09:00 03/28/19 08:53 Lovenox SC 40 mg 0900 CURTIS Administration Senna/Docusate Sodium 1 tab 03/21/19 21:00 03/28/19 08:53 Senokot S PO 1 tab BID CURTIS Administration - Exam General Appearance: NAD, awake alert Eye: PERRL, anicteric sclera ENT: normocephalic atraumatic, no oropharyngeal lesions, moist mucosa Neck: supple, symmetric, no JVD, no thyromegaly, no lymphadenopathy, no carotid bruit Heart: RRR, no murmur, no gallops, no rubs, normal peripheral pulses Respiratory: CTAB, no wheezes, no rales, no ronchi, normal chest expansion, no tachypnea, normal percussion Gastrointestinal: soft, non-tender, non-distended, normal bowel sounds, no palpable masses, no hepatomegaly, no splenomegaly, no bruit Extremities: no cyanosis, no clubbing, no edema Neurological: hemiplegia Hosp A/P (1) Acute CVA (cerebrovascular accident) Code(s): I63.9 - CEREBRAL INFARCTION, UNSPECIFIED Status: Acute (2) Hypertension Code(s): I10 - ESSENTIAL (PRIMARY) HYPERTENSION Status: Chronic Qualifiers: Hypertension type: essential hypertension Qualified Code(s): I10 - Essential (primary) hypertension - Plan Acute stroke with R hemiparesis, will cont PT/OT and thick liquid consistency diet ---continue statins and ASA--- PT and OT. Hypertension--not perfectly controlled---I will increase his lisinopril awaiting NH placement will check labs in am since it has been a while
[2019-03-28] MEDS ORDERED: Lisinopril 20 MG TAB PO SCH (14:15)
[2019-03-28 15:55] VITALS: BP 139/65; TEMP 98
--- NOTE | 2019-03-29 03:17 | DIS ---
DATE OF ADMISSION: 03/17/2019 DATE OF DISCHARGE: 03/28/2019 DISCHARGE DIAGNOSES: 1. Acute stroke with right-sided weakness. 2. High blood pressure. 3. Coronary artery disease. 4. Prior strokes. 5. Chronic obstructive pulmonary disease due to smoking. 6. Documented history of seizures, not on any medications. HISTORY OF PRESENT ILLNESS AND HOSPITAL COURSE: This is a 63-year-old male patient, who does have history of stroke and was not taking any of his medications, presented with stroke-like symptoms, underwent a stroke workup. He was asked to be admitted, but he went AMA to return after being urged by his family to come back to the hospital. He was admitted on March 17, 2019. He was seen by Neurology and was diagnosed with right hemiparesis secondary to left middle cerebral artery infarct. He was started on aspirin and statins. His blood pressure was elevated. He was started on lisinopril. He did receive physical therapy and has been stable. He was getting nectar thick liquid consistency for his dysphagia on pureed diet. He has been doing well and today is stable to be discharged to a nursing facility. PHYSICAL EXAMINATION: VITAL SIGNS: Overnight, his blood pressure has been ranging from 140/65 to 168/78. His heart rate is 55, temperature is 98 degrees, saturating 98% on room air. HEENT: Head is nontraumatic, normocephalic. Pupils equal, reactive. Extraocular movements are intact. Nonicteric sclerae. Well injected conjunctivae. Oral mucosa normal. Nasal mucosa normal. NECK: Supple. No adenopathy. No murmur. Thyroid, not palpable. Trachea is midline. No supraclavicular lymphadenopathy. HEART: S1, S2 regular. No murmur. No gallops. No frictional rubs. No displacement of PMI. LUNGS: Clear to auscultation bilaterally. No wheezes or rhonchi. No crackles. ABDOMEN: Bowel sounds are positive. Nontender abdomen. No hepatosplenomegaly. EXTREMITIES: He does have some edema in bilateral lower extremities. NEURO: He is unable to move his right upper and right lower extremity. ASSESSMENT AND PLAN: This is a 63-year-old male patient, who presented with right-sided weakness secondary to left MCA stroke. He is stable to be sent to a long-term rehabilitation facility. More than half an hour spent to discharge the patient. Job ID: [id number]
[2019-03-29] MEDS ORDERED: Lisinopril 20 MG TAB PO SCH (09:00)
--- NOTE | 2019-03-29 23:16 | EKG ---
Test Reason : Blood Pressure : / mmHG Vent. Rate : 054 BPM Atrial Rate : 054 BPM P-R Int : 136 ms QRS Dur : 090 ms QT Int : 436 ms P-R-T Axes : 022 048 044 degrees QTc Int : 413 ms Sinus bradycardia Otherwise normal ECG Confirmed by HOWARD SMALL ([id number]), acquisitions editor IOANA EARL ([id number] on 03/29/2019 11:16:19 PM Referred By: Confirmed By:HOWARD SMALL
== END 2019-03-28 18:33 | DRG 65 ==
LOC: ERS 10:41 → 2SE 12:18 → OBSVTOIN 12:18 → 2SE 14:41
PROVIDERS: ADMIT Internal Medicine; ATTEND Internal Medicine
DX: I63.512 Cerebral infarction due to unspecified occlusion or stenosis of left middle cerebral artery (principal); G81.91 Hemiplegia, unspecified affecting right dominant side; I25.10 Atherosclerotic heart disease of native coronary artery without angina pectoris; R47.81 Slurred speech; R29.707 NIHSS score 7; R00.1 Bradycardia, unspecified; I10 Essential (primary) hypertension; E11.649 Type 2 diabetes mellitus with hypoglycemia without coma; J44.9 Chronic obstructive pulmonary disease, unspecified; R29.810 Facial weakness; R47.1 Dysarthria and anarthria; Z87.891 Personal history of nicotine dependence; Z95.5 Presence of coronary angioplasty implant and graft; R13.12 Dysphagia, oropharyngeal phase
CPT/HCPCS: 36415; 36416; 70450; 70551; 71045; 74230; 80048; 80053; 80061; 81003; 82550; 84484; 85025; 85610; 85730; 87324; 87449; 90471; 90732; 93005; 93010; 93306; 94760; G0009; J1650